=== PATIENT | male | born 1990 | race Caucasian/White ===

== ENCOUNTER 2023-03-29 22:14 | Emergency (ER) | payer SELFPAY ==
[~2023-03-29] VITALS: Ht 182.9 cm; Wt 81.0 kg
[2023-03-29 22:51] VITALS: BP 127/85
[2023-03-29 23:00] VITALS: BP 125/81
[2023-03-29 23:15] VITALS: BP 121/81
[2023-03-29 23:30] VITALS: BP 115/79
[2023-03-30 00:15] LABS: ALBUMIN 4.1 g/dL (3.2-5.0); ALKALINE PHOSPHATASE 54 u/l (38-126); ANION GAP 10 (6-22 (CALC)); BASO% 0.6 % (0-3); BILIRUBIN, TOTAL 0.6 mg/dL (0.2-1.3); BUN 18 mg/dL (9-20); BUN/CREATININE RATIO 14 (12-20 (CALC)); CARBON DIOXIDE 30 mmol/l (22-30); CHLORIDE 105 mmol/l (95-108); CREATININE 1.3 mg/dL (0.7-1.3); EOS% 6.9 % (0-8); GFR FOR AFR.AMER. > 60 ML/MIN (>=60 (CALC)); GFR OTHER RACES > 60 ML/MIN (>=60 (CALC)); HEMATOCRIT 41.5 % (39.0-50.0); HEMOGLOBIN 13.8 g/dl (14.0-18.0); LYMPH% 25.6 % (15-41); MEAN CELL VOLUME 90.6 fL CALC (80.0-100.0); MEAN CORPUSCULAR HGB 30.1 pG CALC (26.0-32.0); MEAN CORPUSCULAR HGB CONC 33.3 g/dL CAL (32.0-36.0); MONO% 7.5 % (2-13); NEUT# 2.95 thou/uL (1.82-7.42); NEUT% 59.4 % (42-76); POTASSIUM 4.1 mmol/l (3.5-5.1); RED BLOOD COUNT 4.58 mill/uL (4.70-6.10); RED CELL DISTRI WIDTH 12.1 % (11.5-15.5); SGOT/AST 23 u/l (17-59); SODIUM 140 mmol/l (137-146); TOTAL PROTEIN 6.7 g/dL (6.3-8.2)
[2023-03-30] MEDS ORDERED: BACTRIM DS1 TAB PO (00:16)
[2023-03-30] MEDS ORDERED: CEPHALEXIN500 MG PO (00:16)
[2023-03-30 01:08] VITALS: BP 115/79
== END 2023-03-30 01:08 | disposition home or self-care (01) | DRG 603 ==
LOC: ED 22:14
PROVIDERS: Emergency Medicine
DX: L03.115 Cellulitis of right lower limb (principal)

== ENCOUNTER 2023-03-31 22:27 | Emergency (ER) | payer SELFPAY ==
[~2023-03-31] VITALS: Ht 182.9 cm; Wt 81.0 kg
[~2023-03-31 22:27] MED LIST: BACTRIM DS1 TAB PO; CEPHALEXIN500 MG PO
[2023-03-31 23:43] VITALS: BP 114/78
== END 2023-03-31 23:43 | disposition home or self-care (01) | DRG 603 ==
LOC: ED 22:27
DX: L03.115 Cellulitis of right lower limb (principal); S91.331A Puncture wound without foreign body, right foot, initial encounter; W45.0XXA Nail entering through skin, initial encounter